=== PATIENT | female | born 1970 | race Asian ===

== ENCOUNTER 2018-07-02 06:29 | Day surgery (SDC) | payer OTHER ==
[~2018-07-02] VITALS: Ht 162.6 cm; Wt 82.0 kg
[~2018-07-02 06:29] MED LIST: AMOX1TAB16 PO; SODIUM CHLORIDE 0.9% 1,000 ML IV ONE
[2018-07-02] MEDS ORDERED: BENZOCAINE 20% 50 MCG/SPRAY 57 GM TP ONE (06:30)
[2018-07-02] MEDS ORDERED: LIDOCAINE HCL 2% 30 ML JELLY TP ONE (06:30)
[2018-07-02] MEDS ORDERED: LIDOCAINE HCL 4% 50 ML SOLUTION TP ONE (06:30)
[2018-07-02] MEDS ORDERED: SODIUM CHLORIDE 0.9% 1,000 ML IV ONE (06:36)
[2018-07-02] MEDS ORDERED: IPRA3AMP24 NEB (07:42)
[2018-07-02] MEDS ORDERED: FentaNYL CITRATE-PF 100 MCG/2 ML VIAL ONE (08:11)
[2018-07-02] MEDS ORDERED: MIDAZOLAM HCL 2 MG/2 ML VIAL ONE (08:11)
[2018-07-02] MEDS ORDERED: MethylPREDNISolone SOD SUCC 125 MG/2 ML VIAL IVP ONE (09:00)
[2018-07-02] MEDS ORDERED: MethylPREDNISolone SOD SUCC 125 MG/2 ML VIAL ONE (09:16)
[2018-07-02] MEDS ORDERED: OXYGEN THERAPY IH SCH (20:00)
== END 2018-07-02 10:20 | disposition home or self-care (01) ==
LOC: SURGERY 06:29
PROVIDERS: ATTEND Internal Medicine Critical Care Medicine
DX: J38.4 Edema of larynx (principal); B37.0 Candidal stomatitis; J84.111 Idiopathic interstitial pneumonia, not otherwise specified; Z88.6 Allergy status to analgesic agent; Z86.19 Personal history of other infectious and parasitic diseases; Z79.2 Long term (current) use of antibiotics; Z98.51 Tubal ligation status; Z98.890 Other specified postprocedural states; Z79.899 Other long term (current) drug therapy
CPT/HCPCS: 31623; 31624; 71045; 87015; 87070; 87205; 87206; 87220; 88108; 88312; J2250; J2930; J3010; J7030